=== PATIENT | male | born 1960 ===

== ENCOUNTER 2017-09-04 07:56 | Day surgery (SDC) | payer MEDICARE ==
[2017-08-17 11:59] VITALS: BMI 30.4
[2017-09-04 09:03] VITALS: RESP 18; TEMP 97.8
[2017-09-04] MEDS ORDERED: Lidocaine 1% Inj (20ml) ONE ×2 (10:24→10:44)
[2017-09-04] MEDS ORDERED: Bacitracin Ointment 30 GM TUBE ONE (11:18)
[2017-09-04 11:24] VITALS: O2SAT 100
--- NOTE | 2017-09-04 11:24 | PCM.SURG1 ---
Surgeon's Initial Post Op Note - Surgeon's Notes Surgeon: hao andres Customer Service Specialist: none Type of Anesthesia: Local Anesthesia Administered By: hao andres Pre-Operative Diagnosis: Penile adhesion Operative Findings: same Post-Operative Diagnosis: same Operation Performed: Excision of penile adhesion Specimen/Specimens Removed: penile adhesion Estimated Blood Loss: EBL {In ML}: 0 Blood Products Given: N/A Drains Used: No Drains Post-Op Condition: Good Date of Surgery/Procedure: 09/04/17 Time of Surgery/Procedure:
[2017-09-04 11:46] VITALS: BP 125/82; PULSE 78
--- NOTE | 2017-09-06 22:57 | OP ---
PROCEDURE DATE: 09/04/2017 PREOPERATIVE DIAGNOSIS: Penile adhesion. POSTOPERATIVE DIAGNOSIS: Penile adhesion. PROCEDURE: Penile anesthetic field block with lidocaine solution, decreasing the penile adhesion. OPERATING SURGEON: Misty Mooney MD DETAILS OF THE PROCEDURE: As follows. The patient was in supine position. Genitalia prepped and sterilely. Penile anesthesia was obtained as follows. A circumferential field block using 1% lidocaine was performed. The lidocaine was infiltrated at the base of the penis. The penile adhesion was noted. There was a band, which tethered the glans of the penis. The band was located on the right dorsolateral aspect of the penis. Band was approximately 1 cm wide. Using the needlepoint electrocautery, the band was from the bhatia at precisely the junction with the bhatia. The band was detached from the skin of the shaft in a similar fashion with the needlepoint electrocautery. The band was thus fully excised. Hemostasis was achieved. The defect in the skin on the shaft was re-approximated with simple interrupted sutures of 4-0 chromic, closed from left to right. The bacitracin ointment was applied. Sterile dressing was applied. The patient tolerated procedure without complication. Misty Mooney MD
== END 2017-09-04 12:10 | disposition home or self-care (01) ==
LOC: C.SDS 07:56
PROVIDERS: ATTEND Urology
DX: N47.5 Adhesions of prepuce and glans penis (principal); I10 Essential (primary) hypertension; I25.10 Atherosclerotic heart disease of native coronary artery without angina pectoris; Z95.1 Presence of aortocoronary bypass graft